=== PATIENT | female | born 1940 | race Caucasian/White ===

== ENCOUNTER 2017-05-30 09:52 | Emergency (ER) | payer MEDICARE, BC ==
--- NOTE | 2017-05-30 10:29 | EDM.PDOC ---
ED HPI GENERAL MEDICAL PROBLEM - General Chief Complaint: Lower Extremity Injury/Pain Stated Complaint: [id number] FELL AT HOME Time Seen by Provider: 05/30/17 10:15 Source of Information: Reports: Patient History Limitations: Reports: No Limitations - History of Present Illness INITIAL COMMENTS - FREE TEXT/NARRATIVE: This 77 yo female patient reports to the ED with right hip and pelvic pain due to a ground level fall. The patient reports she tripped while at her home and fell on her right hip. The patient reports no loss of consciousness before, during or after the fall. The patient reports pain in her right hip, a contusion on her right lateral eye and an abrasion to her right elbow. The patient has been able to ambulate at home. Onset: Today Onset Date: 05/30/17 Onset Time: 08:15 Duration: Constant Location: Reports: Pelvis, Lower Extremity, Right Quality: Reports: Ache, Dull Severity: Moderate Improves with: Reports: None Worsens with: Reports: None Associated Symptoms: Reports: No Other Symptoms Right Hip Pain Score (Numeric/FACES): 6 - Related Data Allergies Allergy/AdvReac Type Severity Reaction Status Date / Time Penicillins Allergy Rash Verified 05/30/17 09:57 Home Meds: Home Meds Latanoprost 2.5 ml OP DAILY 05/30/17 [History] Levothyroxine [Synthroid] 88 mcg PO ACBREAKFAST 05/30/17 [History] Lisinopril 40 mg PO DAILY 05/30/17 [History] Past Medical History HEENT History: Reports: Cataract, Impaired Vision Cardiovascular History: Reports: Hypertension Musculoskeletal History: Reports: Arthritis Endocrine/Metabolic History: Reports: Hyperthyroidism - Past Surgical History Endocrine Surgical History: Reports: Thyroidectomy Musculoskeletal Surgical History: Reports: Knee Replacement, Shoulder Surgery, Other (See Below) Other Musculoskeletal Surgeries/Procedures:: feet rishabh Social & Family History - Family History Family Medical History: Noncontributory - Tobacco Use Smoking Status *Q: Never Smoker Second Hand Smoke Exposure: No - Caffeine Use Caffeine Use: Reports: Coffee - Alcohol Use Days Per Week of Alcohol Use: 7 Number of Drinks Per Day: 1 Total Drinks Per Week: 7 Date of Last Drink: 05/29/17 Time of Last Drink: 17:00 - Recreational Drug Use Recreational Drug Use: No Review of Systems - Review of Systems Review Of Systems: ROS reveals no pertinent complaints other than HPI. ED EXAM, GENERAL - Physical Exam Exam: See Below Exam Limited By: No Limitations General Appearance: Alert, WD/WN, Moderate Distress Eye Exam: Bilateral Eye: EOMI, Normal Inspection, PERRL Ears: Normal External Exam, Normal Canal, Hearing Grossly Normal, Normal TMs Nose: Normal Inspection, Normal Mucosa, No Blood Throat/Mouth: Normal Inspection, Normal Lips, Normal Teeth, Normal Gums, Normal Oropharynx, Normal Voice, No Airway Compromise Head: Atraumatic, Normocephalic, Other (small contusion to the right lateral cheek) Neck: Normal Inspection, Supple, Non-Tender, Full Range of Motion Respiratory/Chest: No Respiratory Distress, Lungs Clear, Normal Breath Sounds, No Accessory Muscle Use, Chest Non-Tender Cardiovascular: Normal Peripheral Pulses, Regular Rate, Rhythm, No Edema, No Gallop, No JVD, No Murmur, No Rub GI/Abdominal: Normal Bowel Sounds, Soft, Non-Tender, No Organomegaly, No Distention, No Abnormal Bruit, No Mass (Female) Exam: Deferred Rectal (Female) Exam: Deferred Back Exam: Normal Inspection, Full Range of Motion, NT Extremities: Leg Pain (right hip and pelvis), Other (abrasion to right elbow. x- ray demonstrates an acute, mildly impactedsubcapital fracture of the right femoral neck) Neurological: Alert, Oriented, CN II-XII Intact, Normal Cognition, Normal Reflexes, No Motor/Sensory Deficits, Abnormal Gait Psychiatric: Normal Affect Skin Exam: Warm, Normal Color Lymphatic: No Adenopathy Course - Vital Signs Last Recorded V/S: Last Vital Signs Temp 37.2 C 05/30/17 11:22 Pulse 60 05/30/17 11:22 Resp 18 05/30/17 11:22 BP 188/56 H 05/30/17 11:22 Pulse Ox 99 05/30/17 11:22 Departure - Departure Time of Disposition: 11:23 Disposition: DC/Tfer to Acute Hospital 02 Condition: Fair Clinical Impression: Fracture of femoral neck, right, closed Qualifiers: Encounter type: initial encounter Qualified Code(s): S72.001A - Fracture of unspecified part of neck of right femur, initial encounter for closed fracture - Discharge Information Forms: Interfacility Transfer EMTALA Care Plan Goals: Discussed the history, examination and x-ray results with Dr. Soto via [facility] ([facility] Dr. Soto accepted the patient for continued evaluation and further management at [facility] in [place]. The patient will be transported by [facility].
--- NOTE | 2017-05-30 10:40 | CR ---
Clinical history: 77-year-old female ground level fall and right hip pain. Interpretation: AP pelvis/hips and AP/frog lateral views of the right hip abnormal. Acute, mildly impacted, subcapital fracture right femoral neck. No sign of other pelvic or contralateral left hip fracture. 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 Symmetric spacing normal-appearing SI and hip joints.
[2017-05-30 11:23] VITALS: BP 188/56
== END 2017-05-30 11:58 ==
LOC: DL.ED 09:52
DX: S72.011A Unspecified intracapsular fracture of right femur, initial encounter for closed fracture (principal); S00.83XA Contusion of other part of head, initial encounter; S50.311A Abrasion of right elbow, initial encounter; I10 Essential (primary) hypertension; M19.90 Unspecified osteoarthritis, unspecified site; Z96.659 Presence of unspecified artificial knee joint; Z98.890 Other specified postprocedural states; Z79.899 Other long term (current) drug therapy; Z88.0 Allergy status to penicillin; W01.0XXA Fall on same level from slipping, tripping and stumbling without subsequent striking against object, initial encounter; Y92.009 Unspecified place in unspecified non-institutional (private) residence as the place of occurrence of the external cause
CPT/HCPCS: 99284; 99285

== ENCOUNTER 2017-06-03 09:52 | Inpatient (IN) | payer MEDICARE, BC ==
[2017-06-03] MEDS ORDERED: Ondansetron 4 MG Tab.DIS PO PRN (15:00)
[2017-06-03] MEDS ORDERED: Polyethylene Glycol 3350 Powder 17 GM Packet PO PRN (15:00)
[2017-06-03] MEDS ORDERED: Magnesium Hydroxide 400 MG/5 ML Susp 30 ML Cup PO PRN (15:00)
[2017-06-03] MEDS ORDERED: Zolpidem 5 MG Tab PO PRN (15:00)
[2017-06-03] MEDS ORDERED: Docusate Sodium 100 MG Cap PO PRN (15:00)
--- NOTE | 2017-06-03 15:21 | PCM.HP ---
H&P History of Present Illness - General Date of Service: 06/03/17 Admit Problem/Dx: Admission Diagnosis/Problem Admission Diagnosis/Problem Weakness, r. hip pain Source of Information: Patient, Old Records (from [facility]) - History of Present Illness Initial Comments - Free Text/Narative: The patient is a 77-year-old lady who has a history of hypertension. The patient has been living at home and has been using the cane. She accidentally fell, fell over her cane. Landed on her right side. At the trauma to the head and hip fracture. Was admitted to [facility] and underwent right hip replacement surgery. Postoperative course was mostly uneventful, had good pain control. She still needs help with ambulation. She was transferred for further physical and occupational therapy in a swing bed setting. She has moderate pain in the right hip since the surgery. Better with Tylenol, worse with movements. no associated constipation, no fever. - Related Data Allergies/Adverse Reactions: Allergies Allergy/AdvReac Type Severity Reaction Status Date / Time Penicillins Allergy Rash Verified 06/03/17 14:14 Home Medications: Home Meds Latanoprost 1 drop EYEBOTH DAILY 05/30/17 [History] Levothyroxine [Synthroid] 88 mcg PO ACBREAKFAST 05/30/17 [History] Lisinopril 40 mg PO DAILY 05/30/17 [History] Aspirin/Calcium Carbonate/Mag [Aspirin Buffered 325 mg Tab] 325 mg PO DAILY [History] Methylcellulose 4000Cps [Methylcellulose] 1 packet PO DAILY PRN 06/03/17 [ History] Naproxen Sodium [Aleve] 440 mg PO BID 06/03/17 [History] Omeprazole 20 mg PO DAILY 06/03/17 [History] Vit A/Vit C/Vit E/Zinc/Copper [Preservision Areds Softgel] 1 cap PO DAILY [History] oxyCODONE 10 mg PO Q4H PRN 06/03/17 [History] Past Medical History HEENT History: Reports: Cataract, Glaucoma, Impaired Vision Cardiovascular History: Reports: Hypertension Gastrointestinal History: Reports: GERD Musculoskeletal History: Reports: Arthritis Endocrine/Metabolic History: Reports: Hypothyroidism - Infectious Disease History Infectious Disease History: Reports: Chicken Pox - Past Surgical History Endocrine Surgical History: Reports: Thyroidectomy, Other (See Below) Other Endocrine Surgeries/Procedures: destroyed with radioactive iodine injection Musculoskeletal Surgical History: Reports: Knee Replacement, Shoulder Surgery, Other (See Below) Other Musculoskeletal Surgeries/Procedures:: bilateral knees. rotator cuff. left bunion surgery Social & Family History - Family History Family Medical History: Noncontributory - Tobacco Use Smoking Status *Q: Former Smoker Used Tobacco, but Quit: Yes Month Tobacco Last Used: quit at age 42 Second Hand Smoke Exposure: No - Caffeine Use Caffeine Use: Reports: Coffee - Alcohol Use Days Per Week of Alcohol Use: 7 Number of Drinks Per Day: 1 Total Drinks Per Week: 7 - Recreational Drug Use Recreational Drug Use: No H&P Review of Systems - Review of Systems: Review Of Systems: See Below General: Denies: Fever, Chills Pulmonary: Denies: Shortness of Breath Cardiovascular: Denies: Chest Pain Gastrointestinal: Denies: Abdominal Pain Genitourinary: Denies: Dysuria, Hematuria Psychiatric: Denies: Confusion Exam - Exam Exam: See Below - Vital Signs Vital Signs: Last Vital Signs Temp 36.3 C 06/03/17 13:58 Pulse 83 06/03/17 13:58 Resp 20 06/03/17 13:58 BP 131/70 06/03/17 13:58 Pulse Ox 99 06/03/17 15:00 Weight: 77.474 kg - Exam General: Alert, Oriented Neck: Supple Lungs: Clear to Auscultation, Normal Respiratory Effort Cardiovascular: Regular Rate GI/Abdominal Exam: Normal Bowel Sounds, Soft, Non-Tender Back Exam: Normal Inspection Extremities: No Pedal Edema Skin: Incision (r hip) Neuro Extensive - Mental Status: Alert, Oriented x3, Normal Mood/Affect Psychiatric: Alert, Normal Affect, Normal Mood *Q Meaningful Use (ADM) - VTE *Q VTE Criteria *Q: - Stroke *Q Stroke Criteria *Q: - AMI *Q AMI Criteria *Q: - Problem List (1) Fracture of femoral neck, right, closed SNOMED Code(s): 407932087 ICD Code: S72.001A - FRACTURE OF UNSP PART OF NECK OF RIGHT FEMUR, INIT Status: Acute Current Visit: No Qualifiers: Encounter type: initial encounter Qualified Code(s): S72.001A - Fracture of unspecified part of neck of right femur, initial encounter for closed fracture Problem List Initiated/Reviewed/Updated: Yes Orders Last 24hrs: Active Orders 24 hr Category Date Time Status Patient Status [ADT] Routine ADT 06/03/17 15:00 Ordered Antiembolic Devices [RC] PER UNIT ROUTINE Care 06/03/17 15:02 Ordered Oxygen Therapy [RC] PRN Care 06/03/17 15:00 Ordered Up With Assistance [RC] ASDIRECTED Care 06/03/17 15:00 Ordered VTE/DVT Education [RC] PER UNIT ROUTINE Care 06/03/17 15:00 Ordered Vital Signs [RC] QSHIFT Care 06/03/17 15:00 Active OT Evaluation and Treatment [CONS] Routine Cons 06/03/17 14:57 Ordered PT Evaluation and Treatment [CONS] Routine Cons 06/03/17 14:57 Ordered Regular Diet [DIET] Diet 06/03/17 Dinner Ordered BASIC METABOLIC PANEL,BMP [CHEM] AM Lab 06/04/17 05:15 Ordered CBC WITH AUTO DIFF [HEME] AM Lab 06/04/17 05:15 Ordered Acetaminophen [Tylenol] Med 06/03/17 15:00 Ordered 650 mg PO Q4H PRN Aspirin/Calcium Carbonate/Mag [Aspirin Buffered 325 mg Med 06/04/17 09:00 Ordered Tab] 325 mg PO DAILY Docusate Sodium [Colace] Med 06/03/17 15:00 Ordered 100 mg PO BID PRN Heparin Sodium Med 06/03/17 22:00 Ordered 5,000 units SUBCUT Q8HR Latanoprost [Xalatan 0.005% Ophth Soln] Med 06/04/17 09:00 Ordered 1 drop EYEBOTH DAILY Levothyroxine [Synthroid] Med 06/04/17 06:00 Ordered 88 mcg PO ACBREAKFAST Lisinopril [Lisinopril] Med 06/04/17 09:00 Ordered 40 mg PO DAILY Magnesium Hydroxide [Milk of Magnesia] Med 06/03/17 15:00 Ordered 30 ml PO Q12H PRN Omeprazole Med 06/04/17 09:00 Ordered 20 mg PO DAILY Ondansetron [Zofran ODT] Med 06/03/17 15:00 Ordered 4 mg PO Q6H PRN Polyethylene Glycol 3350 [MiraLAX] Med 06/03/17 15:00 Ordered 17 gm PO DAILY PRN Zolpidem [Ambien] Med 06/03/17 15:00 Ordered 5 mg PO BEDTIME PRN oxyCODONE Med 06/03/17 14:57 Ordered 10 mg PO Q4H PRN Antiembolic Hose [OM.PC] Per Unit Routine Oth 06/03/17 15:01 Ordered Resuscitation Status Routine Resus Stat 06/03/17 15:00 Ordered Medication Orders Acetaminophen (Tylenol) 650 mg PO Q4H PRN PRN Reason: Pain (Mild 1-3)/fever Docusate Sodium (Colace) 100 mg PO BID PRN PRN Reason: Constipation Heparin Sodium (Porcine) (Heparin Sodium) 5,000 units SUBCUT Q8HR LARA Latanoprost (Xalatan 0.005% Ophth Soln) ml EYEBOTH DAILY LARA Levothyroxine Sodium (Synthroid) 88 mcg PO ACBREAKFAST LARA Magnesium Hydroxide (Milk Of Magnesia) 30 ml PO Q12H PRN PRN Reason: Constipation Non-Formulary Medication (Aspirin/Calcium Carbonate/Mag [Aspirin Buffered 325 Mg Tab]) 325 mg PO DAILY LARA Non-Formulary Medication (Lisinopril [Lisinopril]) 40 mg PO DAILY LARA Omeprazole (Omeprazole) 20 mg PO DAILY LARA Ondansetron HCl (Zofran Odt) 4 mg PO Q6H PRN PRN Reason: nausea, able to take PO Oxycodone HCl (Oxycodone) 10 mg PO Q4H PRN PRN Reason: Pain Polyethylene Glycol (Miralax) 17 gm PO DAILY PRN PRN Reason: Constipation Zolpidem Tartrate (Ambien) 5 mg PO BEDTIME PRN PRN Reason: Sleep Assessment/Plan Comment:: Right hip fracture, status post surgery DVT prophylaxis will be with aspirin and subcutaneous heparin Pain control with Tylenol Consult physical and occupational therapy Hypertension Treat with lisinopril
[2017-06-03] MEDS: Acetaminophen 325 MG Tab PO PRN (21:37)
[2017-06-03] MEDS: Latanoprost 0.005% Ophth Soln 2.5 ML Bottle EYEBOTH SCH (21:37)
[2017-06-03] MEDS: Heparin Sodium 5,000 Units/ML Vial SUBCUT SCH (21:37)
[2017-06-04] MEDS: Omeprazole 20 MG Cap.CR PO SCH (05:30)
[2017-06-04] MEDS: Levothyroxine 88 MCG Tab PO SCH (05:30)
[2017-06-04] MEDS: Heparin Sodium 5,000 Units/ML Vial SUBCUT SCH ×3 (05:30→21:00)
[2017-06-04 06:57] LABS: CHLORIDE,CL 104 mmol/L (101-111); SODIUM,NA 138 mmol/L (135-145)
[2017-06-04] MEDS: Lisinopril 20 MG Tab PO SCH (10:09)
[2017-06-04] MEDS: Aspirin 325 MG Tab.EC PO SCH (10:09)
[2017-06-04] MEDS: Acetaminophen 325 MG Tab PO PRN ×2 (10:13→21:01)
[2017-06-04] MEDS: Latanoprost 0.005% Ophth Soln 2.5 ML Bottle EYEBOTH SCH (21:00)
[2017-06-05] MEDS: Levothyroxine 88 MCG Tab PO SCH (06:30)
[2017-06-05] MEDS: Omeprazole 20 MG Cap.CR PO SCH (06:30)
[2017-06-05] MEDS: Heparin Sodium 5,000 Units/ML Vial SUBCUT SCH ×3 (06:30→22:25)
[2017-06-05] MEDS: Aspirin 325 MG Tab.EC PO SCH (10:56)
[2017-06-05] MEDS: Lisinopril 20 MG Tab PO SCH (11:07)
[2017-06-05] MEDS: Acetaminophen 325 MG Tab PO PRN ×2 (11:09→16:20)
[2017-06-05] MEDS: Latanoprost 0.005% Ophth Soln 2.5 ML Bottle EYEBOTH SCH (22:27)
[2017-06-06] MEDS: Heparin Sodium 5,000 Units/ML Vial SUBCUT SCH ×3 (06:35→22:08)
[2017-06-06] MEDS: Levothyroxine 88 MCG Tab PO SCH (06:36)
[2017-06-06] MEDS: Omeprazole 20 MG Cap.CR PO SCH (06:36)
[2017-06-06] MEDS: Aspirin 325 MG Tab.EC PO SCH (08:50)
[2017-06-06] MEDS: Lisinopril 20 MG Tab PO SCH (08:51)
[2017-06-06] MEDS: Acetaminophen 325 MG Tab PO PRN ×3 (08:51→20:43)
[2017-06-06] MEDS: Latanoprost 0.005% Ophth Soln 2.5 ML Bottle EYEBOTH SCH (20:42)
[2017-06-07] MEDS: Heparin Sodium 5,000 Units/ML Vial SUBCUT SCH ×3 (05:58→22:09)
[2017-06-07] MEDS: Levothyroxine 88 MCG Tab PO SCH (05:59)
[2017-06-07] MEDS: Omeprazole 20 MG Cap.CR PO SCH (05:59)
[2017-06-07 06:59] LABS: CHLORIDE,CL 105 mmol/L (101-111); SODIUM,NA 140 mmol/L (135-145)
[2017-06-07] MEDS: Aspirin 325 MG Tab.EC PO SCH (08:59)
[2017-06-07] MEDS: Lisinopril 20 MG Tab PO SCH (08:59)
[2017-06-07] MEDS: Acetaminophen 325 MG Tab PO PRN ×2 (09:00→18:29)
--- NOTE | 2017-06-07 15:53 | PCM.PN ---
- General Info Date of Service: 06/07/17 Admission Dx/Problem (Free Text): Admission Diagnosis/Problem Admission Diagnosis/Problem Weakness, r. hip pain Subjective Update: Feeling well, working with physical therapy occupational therapy and making good progress. Has mild pain in the right leg associated with a small amount of swelling. Tylenol is working on the pain. No associated fever, no chest pain, no cough. Functional Status: Reports: Pain Controlled - Review of Systems General: Reports: No Symptoms. Denies: Fever Pulmonary: Denies: Shortness of Breath Cardiovascular: Reports: Edema (r leg since surgery). Denies: Chest Pain Skin: Reports: No Symptoms Neurological: Reports: No Symptoms Psychiatric: Reports: No Symptoms - Patient Data Vitals - Most Recent: Last Vital Signs Temp 36.4 C 06/07/17 08:22 Pulse 54 L 06/07/17 08:22 Resp 18 06/07/17 08:22 BP 115/58 L 06/07/17 08:59 Pulse Ox 100 06/07/17 08:22 Weight - Most Recent: 75.92 kg I&O - Last 24 Hours: Intake & Output 06/07/17 06/07/17 06/07/17 06:59 14:59 22:59 Intake Total 1400 Balance 1400 Lab Results Last 24 Hours: Laboratory Results - last 24 hr 06/07/17 06/07/17 Range/Units 06:20 06:20 WBC 7.5 (5.0-10.0) 10^3/uL RBC 3.42 L (4.2-5.4) 10^6/uL Hgb 10.8 L (12.0-16.0) g/dL Hct 34.1 L (37.0-47.0) % MCV 99.7 (80-100) fL MCH 31.6 (27.0-34.0) pg MCHC 31.7 L (33.0-35.0) g/dL Plt Count 455 H (150-450) 10^3/uL Neut % (Auto) 50.9 (42.2-75.2) % Lymph % (Auto) 26.4 (20.5-50.1) % [place] % (Auto) 14.6 H (2-8) % Eos % (Auto) 6.4 H (1.0-3.0) % Baso % (Auto) 1.7 H (0.0-1.0) % Sodium 140 (135-145) mmol/L Potassium 4.5 (3.6-5.0) mmol/L Chloride 105 (101-111) mmol/L Carbon Dioxide 26.0 (21.0-31.0) mmol/L Anion Gap 13.5 BUN 24 H (7-18) mg/dL Creatinine 0.9 (0.6-1.3) mg/dL Est Cr Clr Drug Dosing 42.72 mL/min Estimated GFR (MDRD) > 60 Glucose 90 (74-105) mg/dL Calcium 9.1 (8.4-10.2) mg/dl Med Orders - Current: Current Medications Acetaminophen (Tylenol) 650 mg PO Q4H PRN PRN Reason: Pain (Mild 1-3)/fever Last Admin: 06/07/17 09:00 Dose: 650 mg Aspirin (Ecotrin) 325 mg PO DAILY [facility] Last Admin: 06/07/17 08:59 Dose: 325 mg Docusate Sodium (Colace) 100 mg PO BID PRN PRN Reason: Constipation Heparin Sodium (Porcine) (Heparin Sodium) 5,000 units SUBCUT Q8HR [facility] Last Admin: 06/07/17 13:51 Dose: 5,000 units Latanoprost (Xalatan 0.005% Oph Soln) 0 ml EYERT BEDTIME [facility] Levothyroxine Sodium (Synthroid) 88 mcg PO ACBREAKFAST [facility] Last Admin: 06/07/17 05:59 Dose: 88 mcg Lisinopril (Prinivil) 40 mg PO DAILY [facility] Last Admin: 06/07/17 08:59 Dose: 40 mg Magnesium Hydroxide (Milk Of Magnesia) 30 ml PO Q12H PRN PRN Reason: Constipation Omeprazole (Omeprazole) 20 mg PO ACBRK [facility] Last Admin: 06/07/17 05:59 Dose: 20 mg Ondansetron HCl (Zofran Odt) 4 mg PO Q6H PRN PRN Reason: nausea, able to take PO Oxycodone HCl (Oxycodone) 10 mg PO Q4H PRN PRN Reason: Pain Polyethylene Glycol (Miralax) 17 gm PO DAILY PRN PRN Reason: Constipation Zolpidem Tartrate (Ambien) 5 mg PO BEDTIME PRN PRN Reason: Sleep Discontinued Medications Latanoprost (Xalatan 0.005% Ophth Soln) 0 ml EYEBOTH BEDTIME [facility] Last Admin: 06/06/17 20:42 Dose: 1 drop - Exam General: Alert, Oriented Neck: Supple Lungs: Clear to Auscultation, Normal Respiratory Effort Cardiovascular: Regular Rate, Regular Rhythm GI/Abdominal Exam: Normal Bowel Sounds, Soft, Non-Tender Extremities: Pedal Edema (r leg trace to 1+) Skin: Warm, Dry Neurological: No New Focal Deficit Psy/Mental Status: Alert, Normal Affect, Normal Mood - Problem List & Annotations (1) Fracture of femoral neck, right, closed SNOMED Code(s): 074173382 Code(s): S72.001A - FRACTURE OF UNSP PART OF NECK OF RIGHT FEMUR, INIT Status: Acute Current Visit: No Qualifiers: Encounter type: initial encounter Qualified Code(s): S72.001A - Fracture of unspecified part of neck of right femur, initial encounter for closed fracture - Problem List Review Problem List Initiated/Reviewed/Updated: Yes - My Orders Last 24 Hours: My Active Orders 06/07/17 21:00 Latanoprost [Xalatan 0.005% Ophth Soln] 0 ml EYERT BEDTIME - Plan Plan:: Right hip fracture, status post surgery DVT prophylaxis will be with aspirin and subcutaneous heparin Pain control with Tylenol continue to work with physical and occupational therapy edema likely relates to surgery, less likely DVT Hypertension Treat with lisinopril
--- NOTE | 2017-06-07 16:49 | US ---
Clinical history: 77-year-old female recent hip fracture and surgical procedure (surgery May) who is at bed rest. Rule out DVT right lower extremity. Interpretation: Negative exam. No sign of intraluminal thrombus and normal compressibility deep veins of the right groin, thigh and knee with satisfactory augmentation and venous waveforms demonstrated respectively in the posterior tibial veins of the right calf, popliteal vein behind the right knee, and approximately in the supe rficial/common femoral veins. No Flower's cyst. CONCLUSION: No current sonographic evidence deep vein thrombosis right lower extremity.
[2017-06-07] MEDS: Latanoprost 0.005% Ophth Soln 2.5 ML Bottle EYERT SCH (21:23)
[2017-06-08] MEDS: Levothyroxine 88 MCG Tab PO SCH (06:15)
[2017-06-08] MEDS: Omeprazole 20 MG Cap.CR PO SCH (06:16)
[2017-06-08] MEDS: Heparin Sodium 5,000 Units/ML Vial SUBCUT SCH ×3 (06:16→21:01)
[2017-06-08] MEDS: Lisinopril 20 MG Tab PO SCH (08:30)
[2017-06-08] MEDS: Aspirin 325 MG Tab.EC PO SCH (08:30)
[2017-06-08] MEDS: Acetaminophen 325 MG Tab PO PRN ×2 (16:23→21:00)
[2017-06-08] MEDS: Latanoprost 0.005% Ophth Soln 2.5 ML Bottle EYERT SCH (20:44)
[2017-06-09] MEDS: Levothyroxine 88 MCG Tab PO SCH (05:51)
[2017-06-09] MEDS: Heparin Sodium 5,000 Units/ML Vial SUBCUT SCH ×3 (05:51→22:31)
[2017-06-09] MEDS: Omeprazole 20 MG Cap.CR PO SCH (05:51)
[2017-06-09] MEDS: Aspirin 325 MG Tab.EC PO SCH (09:10)
[2017-06-09] MEDS: Lisinopril 20 MG Tab PO SCH (09:11)
[2017-06-09] MEDS: Acetaminophen 325 MG Tab PO PRN ×3 (09:13→19:05)
[2017-06-09] MEDS: oxyCODONE 5 MG Tab PO PRN ×2 (15:36→22:33)
[2017-06-09] MEDS: Latanoprost 0.005% Ophth Soln 2.5 ML Bottle EYERT SCH (22:32)
[2017-06-10] MEDS: oxyCODONE 5 MG Tab PO PRN ×2 (03:25→09:25)
[2017-06-10] MEDS: Heparin Sodium 5,000 Units/ML Vial SUBCUT SCH ×2 (06:55→13:37)
[2017-06-10] MEDS: Levothyroxine 88 MCG Tab PO SCH (06:55)
[2017-06-10] MEDS: Omeprazole 20 MG Cap.CR PO SCH (06:55)
[2017-06-10] MEDS: Acetaminophen 325 MG Tab PO PRN (06:56)
[2017-06-10] MEDS: Aspirin 325 MG Tab.EC PO SCH (09:25)
[2017-06-10] MEDS: Lisinopril 20 MG Tab PO SCH (09:28)
[2017-06-10 09:29] VITALS: BP 113/71
--- NOTE | 2017-06-10 12:20 | PCM.DCSUM1 ---
Discharge Summary - Hospital Course Free Text/Narrative:: Right hip fracture, status post surgery Significantly improved weakness and gait. DVT prophylaxis was with aspirin Pain controlled with Tylenol Hypertension Treat with lisinopril Follow-up with orthopedic surgery and primary care physician Follow-up with outpatient physical therapy - Discharge Data Discharge Date: 06/10/17 Discharge Disposition: Home, Self-Care 01 Condition: Good - Discharge Diagnosis/Problem(s) (1) Fracture of femoral neck, right, closed SNOMED Code(s): 005834687 ICD Code: S72.001A - FRACTURE OF UNSP PART OF NECK OF RIGHT FEMUR, INIT Status: Acute Current Visit: No Qualifiers: Encounter type: initial encounter Qualified Code(s): S72.001A - Fracture of unspecified part of neck of right femur, initial encounter for closed fracture - Patient Summary/Data Consults: Consultations 06/03/17 14:57 OT Evaluation and Treatment [CONS] Routine PT Evaluation and Treatment [CONS] Routine - Patient Instructions Diet: Heart Healthy Diet Activity: As Tolerated - Discharge Plan Home Medications: Home Meds Latanoprost 1 drop EYEBOTH DAILY 05/30/17 [History] Levothyroxine [Synthroid] 88 mcg PO ACBREAKFAST 05/30/17 [History] Lisinopril 40 mg PO DAILY 05/30/17 [History] Aspirin/Calcium Carbonate/Mag [Aspirin Buffered 325 mg Tab] 325 mg PO DAILY [History] Methylcellulose 4000Cps [Methylcellulose] 1 packet PO DAILY PRN 06/03/17 [ History] Naproxen Sodium [Aleve] 440 mg PO BID 06/03/17 [History] Omeprazole 20 mg PO DAILY 06/03/17 [History] Vit A/Vit C/Vit E/Zinc/Copper [Preservision Areds Softgel] 1 cap PO DAILY [History] Patient Handouts: Total Hip Replacement, [id number], How to Use a Walker, Total Hip Replacement, Care After, [id number] Referrals: Amol Owen MD [Primary Care Provider] - (in 2-3 days) - General Info Date of Service: 06/10/17 Admission Dx/Problem (Free Text: Admission Diagnosis/Problem Admission Diagnosis/Problem Weakness, r. hip pain Subjective Update: Feeling well Head therapeutic leave yesterday and the day before Has done well in his home setting. - Review of Systems General: Denies: Fever, Weakness Pulmonary: Denies: Shortness of Breath Cardiovascular: Denies: Chest Pain Gastrointestinal: Denies: Abdominal Pain Psychiatric: Denies: Confusion - Patient Data Vitals - Most Recent: Last Vital Signs Temp 36.7 C 06/10/17 07:00 Pulse 54 L 06/10/17 07:00 Resp 20 06/10/17 07:00 BP 113/71 06/10/17 09:28 Pulse Ox 99 06/10/17 07:00 Weight - Most Recent: 75.92 kg I&O - Last 24 hours: Intake & Output 06/09/17 06/10/17 06/10/17 22:59 06:59 14:59 Intake Total 250 100 Balance 250 100 Med Orders - Current: Current Medications Acetaminophen (Tylenol) 650 mg PO Q4H PRN PRN Reason: Pain (Mild 1-3)/fever Last Admin: 06/10/17 06:56 Dose: 650 mg Aspirin (Ecotrin) 325 mg PO DAILY [facility] Last Admin: 06/10/17 09:25 Dose: 325 mg Docusate Sodium (Colace) 100 mg PO BID PRN PRN Reason: Constipation Heparin Sodium (Porcine) (Heparin Sodium) 5,000 units SUBCUT Q8HR [facility] Last Admin: 06/10/17 06:55 Dose: 5,000 units Latanoprost (Xalatan 0.005% Ophth Soln) 0 ml EYERT BEDTIME [facility] Last Admin: 06/09/17 22:32 Dose: 1 drop Levothyroxine Sodium (Synthroid) 88 mcg PO ACBREAKFAST [facility] Last Admin: 06/10/17 06:55 Dose: 88 mcg Lisinopril (Prinivil) 40 mg PO DAILY [facility] Last Admin: 06/10/17 09:28 Dose: 40 mg Magnesium Hydroxide (Milk Of Magnesia) 30 ml PO Q12H PRN PRN Reason: Constipation Omeprazole (Omeprazole) 20 mg PO ACBRK [facility] Last Admin: 06/10/17 06:55 Dose: 20 mg Ondansetron HCl (Zofran Odt) 4 mg PO Q6H PRN PRN Reason: nausea, able to take PO Oxycodone HCl (Oxycodone) 10 mg PO Q4H PRN PRN Reason: Pain Last Admin: 06/10/17 09:25 Dose: 10 mg Polyethylene Glycol (Miralax) 17 gm PO DAILY PRN PRN Reason: Constipation Zolpidem Tartrate (Ambien) 5 mg PO BEDTIME PRN PRN Reason: Sleep Discontinued Medications Latanoprost (Xalatan 0.005% Ophth Soln) 0 ml EYEBOTH BEDTIME [facility] Last Admin: 06/06/17 20:42 Dose: 1 drop - Exam General: Reports: Alert, Oriented Neck: Reports: Supple Lungs: Reports: Clear to Auscultation, Normal Respiratory Effort GI/Abdominal Exam: Normal Bowel Sounds, Soft Skin: Reports: Warm, Dry Neurological: Reports: No New Focal Deficit Psy/Mental Status: Reports: Alert, Normal Affect, Normal Mood *Q Meaningful Use (DIS) - VTE *Q VTE Criteria *Q: - Stroke *Q Stroke Criteria *Q: - AMI *Q AMI Criteria *Q:
== END 2017-06-10 16:30 | disposition home or self-care (01) | DRG 561 ==
LOC: UNDOADMIN 13:35 → DL.MS 13:35
PROVIDERS: ADMIT Internal Medicine; ATTEND Internal Medicine
DX: S72.001D Fracture of unspecified part of neck of right femur, subsequent encounter for closed fracture with routine healing (principal); R53.1 Weakness; I10 Essential (primary) hypertension; W18.30XA Fall on same level, unspecified, initial encounter; H40.9 Unspecified glaucoma; K21.9 Gastro-esophageal reflux disease without esophagitis; E03.9 Hypothyroidism, unspecified; M19.90 Unspecified osteoarthritis, unspecified site; Z87.891 Personal history of nicotine dependence; R60.0 Localized edema
CPT/HCPCS: 36415; 80048; 85025; 93971; 97110-GP; 97116-GP; 97161-GP; 97165-GO; 97535-GO; A9270-GY; J1644

== ENCOUNTER 2017-10-12 22:43 | Emergency (ER) | payer MEDICARE, BC ==
[2017-10-12] MEDS ORDERED: Magnesium Citrate Solution 296 ML Bottle PO ONE (22:44)
[2017-10-12] MEDS ORDERED: Morphine 2 MG/ML Syringe IVPUSH ONE (23:32)
[2017-10-12] MEDS ORDERED: Ondansetron 4 MG/2 ML SDV IV ONE (23:33)
--- NOTE | 2017-10-12 23:33 | EDM.PDOC ---
ED HPI GENERAL MEDICAL PROBLEM - General Chief Complaint: Abdominal Pain Stated Complaint: ABD PAIN, GALLBLADDER? Time Seen by Provider: 10/12/17 22:55 Source of Information: Reports: Patient History Limitations: Reports: No Limitations - History of Present Illness INITIAL COMMENTS - FREE TEXT/NARRATIVE: left side and back pain worsening since yesterday am. Notes constipation, no nausea or vomiting. no fever no problems urinating Severity: Moderate Left Mid-Anterior Abdomen Pain Score (Numeric/FACES): 6 - Related Data Allergies Allergy/AdvReac Type Severity Reaction Status Date / Time Penicillins Allergy Rash Verified 10/12/17 22:59 Home Meds: Home Meds Latanoprost 1 drop EYEBOTH DAILY 05/30/17 [History] Levothyroxine [Synthroid] 88 mcg PO ACBREAKFAST 05/30/17 [History] Lisinopril 40 mg PO DAILY 05/30/17 [History] Aspirin/Calcium Carbonate/Mag [Aspirin Buffered 325 mg Tab] 325 mg PO DAILY [History] Methylcellulose 4000Cps [Methylcellulose] 1 packet PO DAILY PRN 06/03/17 [ History] Naproxen Sodium [Aleve] 440 mg PO BID 06/03/17 [History] Omeprazole 20 mg PO DAILY 06/03/17 [History] Vit A/Vit C/Vit E/Zinc/Copper [Preservision Areds Softgel] 1 cap PO DAILY [History] oxyCODONE 5 mg PO Q4H PRN #0 tablet 06/10/17 [Rx] Past Medical History HEENT History: Reports: Cataract, Glaucoma, Impaired Vision Cardiovascular History: Reports: Hypertension Gastrointestinal History: Reports: GERD Musculoskeletal History: Reports: Arthritis Endocrine/Metabolic History: Reports: Hypothyroidism - Infectious Disease History Infectious Disease History: Reports: Chicken Pox - Past Surgical History Endocrine Surgical History: Reports: Thyroidectomy, Other (See Below) Other Endocrine Surgeries/Procedures: destroyed with radioactive iodine injection Musculoskeletal Surgical History: Reports: Knee Replacement, Shoulder Surgery, Other (See Below) Other Musculoskeletal Surgeries/Procedures:: bilateral knees. rotator cuff. left bunion surgery Social & Family History - Family History Family Medical History: Noncontributory - Tobacco Use Smoking Status *Q: Former Smoker Used Tobacco, but Quit: No Month Tobacco Last Used: quit at age 42 Second Hand Smoke Exposure: No - Caffeine Use Caffeine Use: Reports: Coffee, Soda - Alcohol Use Days Per Week of Alcohol Use: 7 Number of Drinks Per Day: 1 Total Drinks Per Week: 7 Date of Last Drink: 10/12/17 - Recreational Drug Use Recreational Drug Use: No ED ROS GENERAL - Review of Systems Review Of Systems: See Below Constitutional: Denies: Fever, Chills HEENT: Reports: No Symptoms Respiratory: Reports: No Symptoms Cardiovascular: Reports: No Symptoms GI/Abdominal: Reports: Constipation, Flatus. Denies: Abdominal Pain, Diarrhea, Decreased Appetite, Distension : Reports: No Symptoms, Flank Pain (left) Musculoskeletal: Reports: Back Pain (lateral left lower). Denies: Leg Pain Skin: Reports: No Symptoms Neurological: Reports: No Symptoms ED EXAM, GI/ABD - Physical Exam Exam: See Below Exam Limited By: No Limitations General Appearance: Alert, Mild Distress (worse with movment) Eyes: Bilateral: EOMI Ears: Normal External Exam Nose: Normal Inspection Throat/Mouth: Normal Inspection, Normal Lips, Normal Oropharynx, Normal Voice Head: Atraumatic, Normocephalic Neck: Normal Inspection, Full Range of Motion Respiratory/Chest: No Respiratory Distress, Lungs Clear, Normal Breath Sounds Cardiovascular: Normal Peripheral Pulses, Regular Rate, Rhythm GI/Abdominal Exam: Normal Bowel Sounds, Soft, Non-Tender Back Exam: Normal Inspection, Full Range of Motion, CVA Tenderness (L) Extremities: Normal Inspection Neurological: Alert, Oriented, Normal Cognition, Normal Gait Psychiatric: Normal Affect Skin Exam: Warm, Dry, Intact, Normal Color Course - Vital Signs Last Recorded V/S: Last Vital Signs Temp 97.6 F 10/13/17 00:39 Pulse 64 10/13/17 00:39 Resp 18 10/13/17 00:39 BP 152/52 H 10/13/17 00:39 Pulse Ox 95 10/13/17 00:39 - Orders/Labs/Meds Orders: Active Orders 24 hr Category Date Time Status Abdomen Pelvis wo Cont [CT] Urgent Exams 10/13/17 00:05 Taken Labs: Laboratory Tests 10/12/17 10/12/17 10/13/17 Range/Units 22:55 22:55 00:30 WBC 7.2 (5.0-10.0) 10^3/uL RBC 3.85 L (4.2-5.4) 10^6/uL Hgb 12.0 (12.0-16.0) g/dL Hct 38.1 (37.0-47.0) % MCV 99.0 (80-100) fL MCH 31.2 (27.0-34.0) pg MCHC 31.5 L (33.0-35.0) g/dL Plt Count 389 (150-450) 10^3/uL Neut % (Auto) 46.1 (42.2-75.2) % Lymph % (Auto) 34.6 (20.5-50.1) % [place] % (Auto) 12.4 H (2-8) % Eos % (Auto) 5.2 H (1.0-3.0) % Baso % (Auto) 1.7 H (0.0-1.0) % Sodium 137 (135-145) mmol/L Potassium 4.2 (3.6-5.0) mmol/L Chloride 103 (101-111) mmol/L Carbon Dioxide 24.0 (21.0-31.0) mmol/L Anion Gap 14.2 BUN 21 H (7-18) mg/dL Creatinine 0.9 (0.6-1.3) mg/dL Est Cr Clr Drug Dosing 54.48 mL/min Estimated GFR (MDRD) > 60 BUN/Creatinine Ratio 23.33 Glucose 97 (74-105) mg/dL Calcium 9.2 (8.4-10.2) mg/dl Total Bilirubin 0.5 (0.2-1.0) mg/dL AST 23 (10-42) IU/L ALT 17 (10-60) IU/L Alkaline Phosphatase 68 (42-121) IU/L Total Protein 7.2 (6.7-8.2) g/dl Albumin 4.3 (3.2-5.5) g/dl Globulin 2.9 Albumin/Globulin Ratio 1.48 Amylase 72 (28-100) U/L Lipase 34 (22-51) U/L Urine Color Yellow (YELLOW) Urine Appearance Clear (CLEAR) Urine pH 5.5 (5.0-9.0) Ur Specific [place] <= 1.005 (1.005-1.030) Urine Protein Negative (NEGATIVE) Urine Glucose (UA) Negative (NEGATIVE) Urine Ketones Negative (NEGATIVE) Urine Occult Blood Negative (NEGATIVE) Urine Nitrite Negative (NEGATIVE) Urine Bilirubin Negative (NEGATIVE) Urine Urobilinogen 0.2 (0.2-1.0) mg/dL Ur Leukocyte Esterase Trace H (NEGATIVE) Urine RBC 0-5 /HPF Urine WBC 0-5 (0-5/HPF) /HPF Ur Epithelial Cells Few /HPF Urine Bacteria Few (0-FEW/HPF) /HPF Meds: Medications Discontinued Medications Generic Name Dose Route Start Last Admin Trade Name James PRN Reason Stop Dose Admin Sodium Chloride 1,000 mls @ 150 mls/hr 10/13/17 00:11 10/13/17 00:33 Normal Saline IV 10/13/17 06:50 150 mls/hr .BOLUS ONE Administration Magnesium Citrate Confirm 10/13/17 01:19 Citrate Of Magnesia Administered 10/13/17 01:20 Dose 296 ml .ROUTE .STK-MED ONE Morphine Sulfate 2 mg 10/12/17 23:32 10/12/17 23:41 Morphine IVPUSH 10/12/17 23:33 2 mg ONETIME ONE Administration Morphine Sulfate 2 mg 10/13/17 00:24 10/13/17 00:36 Morphine IVPUSH 10/13/17 00:25 2 mg ONETIME ONE Administration Ondansetron HCl 4 mg 10/12/17 23:33 10/12/17 23:41 Zofran IV 10/12/17 23:34 4 mg ONETIME ONE Administration - Radiology Interpretation Free Text/Narrative:: CT abdomen without contrast: no renal calculi, constipation, Departure - Departure Time of Disposition: 01:20 Disposition: Home, Self-Care 01 Condition: Fair Clinical Impression: Left flank pain Constipation Qualifiers: Constipation type: unspecified constipation type Qualified Code(s): K59.00 - Constipation, unspecified - Discharge Information Instructions: Constipation, Adult, [id number] Referrals: PCP,Unobtain [Primary Care Provider] - Forms: ED Department Discharge Additional Instructions: Mag citrate one bottle today increase fluid intake miralax one capful daily follow up in clinic as needed, - next week if continued pain - My Orders Last 24 Hours: My Active Orders 10/13/17 00:05 Abdomen Pelvis wo Cont [CT] Urgent - Assessment/Plan Last 24 Hours: My Active Orders 10/13/17 00:05 Abdomen Pelvis wo Cont [CT] Urgent
[2017-10-12 23:35] LABS: CHLORIDE,CL 103 mmol/L (101-111); SODIUM,NA 137 mmol/L (135-145)
[2017-10-13] MEDS ORDERED: Sodium Chloride 0.9% 1,000 ML IV ONE (00:11)
[2017-10-13] MEDS ORDERED: Morphine 2 MG/ML Syringe IVPUSH ONE (00:24)
[2017-10-13 00:41] VITALS: BP 152/52
[2017-10-13] MEDS ORDERED: Magnesium Citrate Solution 296 ML Bottle ONE (01:19)
== END 2017-10-13 01:31 | disposition home or self-care (01) ==
LOC: DL.ED 22:43
DX: K59.00 Constipation, unspecified (principal); I10 Essential (primary) hypertension; Z88.0 Allergy status to penicillin; Z79.82 Long term (current) use of aspirin; Z79.899 Other long term (current) drug therapy; Z87.891 Personal history of nicotine dependence
CPT/HCPCS: 36415; 74176; 80053; 81001; 82150; 83690; 85025; 96374; 96375; 96376; 99284; J2270; J2405; J7030; A9270-GY

== ENCOUNTER 2019-03-02 14:13 | Emergency (ER) | payer MEDICARE, BC ==
[2019-03-02] MEDS ORDERED: Sodium Chloride 0.9% 10 ML Syringe FLUSH PRN (14:22)
--- NOTE | 2019-03-02 14:37 | CT ---
Clinical history: 78-year-old female clinical "stroke". Rule out intracranial bleed or other abnormality. Scan technique: Volume acquisition of data emergency unenhanced CT scan of the head and brain obtained with the patient was lying supine on the Siemens multi slice scanner [place], [place]. All data archived in the PACS system for storage, reformatting axial/sagittal/coronal planes and study (bone/brain windows). Interpretation: Abnormal. 1. Extensive multi-infarct ischemic changes identified throughout the periventricular white matter of both cerebral hemispheres. Physiologic pineal and choroid plexus calcifications. 2. No sign of acute intracerebral/intraventricular/subarachnoid bleed. (Tiny punctate calcification high in the right parietal convexity new since exam 02 June 2008) 3. Uniformly thick bony calvarium. Symmetric clear pneumatization of the mastoid and paranasal sinuses. 4. No extracerebral/intracranial epidural or subdural hematoma. 5. No supratentorial or posterior fossa mass lesion. Age-appropriate atrophy. Cerebellum and brainstem unremarkable. CONCLUSION: Chronic (increased) 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 No new intracranial mass, hydrocephalus or bleed. Critical exam reported at 1435 hours on 02 March 2019.
[2019-03-02 14:52] LABS: ANION GAP 16.4; CHLORIDE,CL 100 mmol/L (101-111); SODIUM,NA 136 mmol/L (135-145)
[2019-03-02 14:58] VITALS: BP 178/73
--- NOTE | 2019-03-02 16:48 | EDM.PDOC ---
ED HPI GENERAL MEDICAL PROBLEM - General Chief Complaint: Neuro Symptoms/Deficits Stated Complaint: STROKE?MEMORY LOSS,VISON LOSS [id number] Time Seen by Provider: 03/02/19 14:17 Source of Information: Reports: Patient, RN, RN Notes Reviewed History Limitations: Reports: No Limitations - History of Present Illness INITIAL COMMENTS - FREE TEXT/NARRATIVE: Patient presents to ER with complaint of headache, loss of half of vision in right eye, weakness and feeling of "not finding words". Patient states this occurred at 0930. The patient then went shopping and went to exercise, then came to the ER. Vision and weakness has resolved. Still feels as though she can' t find words. NIH score is negative. Onset: Today Duration: Getting Worse Location: Reports: Generalized Quality: Reports: Ache Severity: Severe Improves with: Reports: None Worsens with: Reports: None Associated Symptoms: Reports: No Other Symptoms - Related Data Allergies Allergy/AdvReac Type Severity Reaction Status Date / Time Penicillins Allergy Rash Verified 03/02/19 14:31 Home Meds: Home Meds Latanoprost 1 drop EYEBOTH DAILY 05/30/17 [History] Levothyroxine [Synthroid] 88 mcg PO ACBREAKFAST 05/30/17 [History] Lisinopril 40 mg PO DAILY 05/30/17 [History] Methylcellulose 4000Cps [Methylcellulose] 1 packet PO DAILY PRN 06/03/17 [ History] Naproxen Sodium [Aleve] 440 mg PO DAILY 06/03/17 [History] Vit A/Vit C/Vit E/Zinc/Copper [Preservision Areds Softgel] 1 cap PO DAILY [History] Alendronate Sodium 70 mg PO WEEKLY 03/02/19 [History] Aspirin [Halfprin] 81 mg PO DAILY 03/02/19 [History] Pantoprazole [ProTONIX] 40 mg PO DAILY 03/02/19 [History] Past Medical History HEENT History: Reports: Cataract, Glaucoma, Impaired Vision Other HEENT History: wears glasses Cardiovascular History: Reports: Hypertension Respiratory History: Reports: None Gastrointestinal History: Reports: GERD Genitourinary History: Reports: None 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 Musculoskeletal History: Reports: Arthritis Neurological History: Reports: None Psychiatric History: Reports: None Endocrine/Metabolic History: Reports: Hypothyroidism Hematologic History: Reports: None Immunologic History: Reports: None Oncologic (Cancer) History: Reports: None Dermatologic History: Reports: None - Infectious Disease History Infectious Disease History: Reports: Chicken Pox - Past Surgical History Endocrine Surgical History: Reports: Thyroidectomy, Other (See Below) Other Endocrine Surgeries/Procedures: destroyed with radioactive iodine injection Musculoskeletal Surgical History: Reports: Knee Replacement, Shoulder Surgery, Other (See Below) Other Musculoskeletal Surgeries/Procedures:: bilateral knees. rotator cuff. left bunion surgery Social & Family History - Family History Family Medical History: Noncontributory - Tobacco Use Smoking Status *Q: Never Smoker Second Hand Smoke Exposure: No - Caffeine Use Caffeine Use: Reports: Coffee, Soda - Recreational Drug Use Recreational Drug Use: No ED ROS GENERAL - Review of Systems Review Of Systems: ROS reveals no pertinent complaints other than HPI. ED EXAM, NEURO - Physical Exam Exam: See Below Exam Limited By: No Limitations General Appearance: Alert, WD/WN, No Apparent Distress Eye Exam: Bilateral Eye: EOMI, Normal Inspection, PERRL Ears: Normal External Exam, Normal Canal, Hearing Grossly Normal, Normal TMs Nose: Normal Inspection, Normal Mucosa, No Blood Throat/Mouth: Normal Inspection, Normal Lips, Normal Teeth, Normal Gums, Normal Oropharynx, Normal Voice, No Airway Compromise Head Exam: Atraumatic, Normocephalic Neck: Normal Inspection, Supple, Non-Tender, Full Range of Motion Respiratory/Chest: No Respiratory Distress, Lungs Clear, Normal Breath Sounds, No Accessory Muscle Use, Chest Non-Tender Cardiovascular: Normal Peripheral Pulses, Regular Rate, Rhythm, No Edema, No Gallop, No JVD, No Murmur, No Rub (Female) Exam: Deferred Rectal (Female) Exam: Deferred Neurological: Alert, Normal Mood/Affect, Normal Dorsiflexion, CN II-XII Intact, Normal Plantar Flexion, Normal Gait, Normal Reflexes, No Motor/Sensory Deficits , Oriented x 3 Back Exam: Normal Inspection, Full Range of Motion, NT Extremities: Normal Inspection, Normal Range of Motion, Non-Tender, No Pedal Edema, Normal Capillary Refill Psychiatric: Normal Affect, Normal Mood Skin Exam: Warm Course - Vital Signs Last Recorded V/S: Last Vital Signs Temp 96.8 F 03/02/19 14:18 Pulse 67 03/02/19 14:18 Resp 16 03/02/19 14:18 BP 178/73 H 03/02/19 14:18 Pulse Ox 100 03/02/19 14:18 - Orders/Labs/Meds Orders: Active Orders 24 hr Category Date Time Status Blood Glucose Check, Bedside [RC] ONETIME Care 03/02/19 14:23 Active EKG Documentation Completion [RC] STAT Care 03/02/19 14:22 Active Peripheral IV Care [RC] . DIRECTED Care 03/02/19 14:23 Active Peripheral IV Insertion Adult [OM.PC] Stat Oth 03/02/19 14:22 Ordered Labs: Laboratory Tests 03/02/19 03/02/19 03/02/19 Range/Units 14:17 14:21 14:21 WBC 8.4 (5.0-10.0) 10^3/uL RBC 3.63 L (4.2-5.4) 10^6/uL Hgb 11.4 L (12.0-16.0) g/dL Hct 35.6 L (37.0-47.0) % MCV 98.1 (80-100) fL MCH 31.4 (27.0-34.0) pg MCHC 32.0 L (33.0-35.0) g/dL Plt Count 430 (150-450) 10^3/uL Neut % (Auto) 64.6 (42.2-75.2) % Lymph % (Auto) 17.1 L (20.5-50.1) % [place] % (Auto) 11.5 H (2-8) % Eos % (Auto) 5.5 H (1.0-3.0) % Baso % (Auto) 1.3 H (0.0-1.0) % PT 8.9 L (9.0-12.0) SEC INR 0.9 (0.9-1.2) Sodium (135-145) mmol/L Potassium (3.6-5.0) mmol/L Chloride (101-111) mmol/L Carbon Dioxide (21.0-31.0) mmol/L Anion Gap BUN (7-18) mg/dL Creatinine (0.6-1.3) mg/dL Est Cr Clr Drug Dosing Estimated GFR (MDRD) BUN/Creatinine Ratio Glucose (74-105) mg/dL POC Glucose 96 (83-110) mg/dl Calcium (8.4-10.2) mg/dl Total Bilirubin (0.2-1.0) mg/dL AST (10-42) IU/L ALT (10-60) IU/L Alkaline Phosphatase (42-121) IU/L Troponin I (0.00-0.02) ng/ml Total Protein (6.7-8.2) g/dl Albumin (3.2-5.5) g/dl Globulin Albumin/Globulin Ratio Urine Color (YELLOW) Urine Appearance (CLEAR) Urine pH (5.0-9.0) Ur Specific [place] (1.005-1.030) Urine Protein (NEGATIVE) Urine Glucose (UA) (NEGATIVE) Urine Ketones (NEGATIVE) Urine Occult Blood (NEGATIVE) Urine Nitrite (NEGATIVE) Urine Bilirubin (NEGATIVE) Urine Urobilinogen (0.2-1.0) mg/dL Ur Leukocyte Esterase (NEGATIVE) Urine RBC /HPF Urine WBC (0-5/HPF) /HPF Ur Epithelial Cells /HPF Amorphous Sediment (0/HPF) /HPF Urine Bacteria (0-FEW/HPF) /HPF Hyaline Casts /LPF Ethyl Alcohol mg/dL 03/02/19 03/02/19 Range/Units 14:21 15:35 WBC (5.0-10.0) 10^3/uL RBC (4.2-5.4) 10^6/uL Hgb (12.0-16.0) g/dL Hct (37.0-47.0) % MCV (80-100) fL MCH (27.0-34.0) pg MCHC (33.0-35.0) g/dL Plt Count (150-450) 10^3/uL Neut % (Auto) (42.2-75.2) % Lymph % (Auto) (20.5-50.1) % [place] % (Auto) (2-8) % Eos % (Auto) (1.0-3.0) % Baso % (Auto) (0.0-1.0) % PT (9.0-12.0) SEC INR (0.9-1.2) Sodium 136 (135-145) mmol/L Potassium 4.4 (3.6-5.0) mmol/L Chloride 100 L (101-111) mmol/L Carbon Dioxide 24.0 (21.0-31.0) mmol/L Anion Gap 16.4 BUN 31 H (7-18) mg/dL Creatinine 1.1 (0.6-1.3) mg/dL Est Cr Clr Drug Dosing TNP Estimated GFR (MDRD) 48 BUN/Creatinine Ratio 28.18 Glucose 103 (74-105) mg/dL POC Glucose (83-110) mg/dl Calcium 9.1 (8.4-10.2) mg/dl Total Bilirubin 0.8 (0.2-1.0) mg/dL AST 23 (10-42) IU/L ALT 16 (10-60) IU/L Alkaline Phosphatase 63 (42-121) IU/L Troponin I < 0.02 (0.00-0.02) ng/ml Total Protein 6.8 (6.7-8.2) g/dl Albumin 4.0 (3.2-5.5) g/dl Globulin 2.8 Albumin/Globulin Ratio 1.43 Urine Color Yellow (YELLOW) Urine Appearance Clear (CLEAR) Urine pH 7.5 (5.0-9.0) Ur Specific [place] 1.015 (1.005-1.030) Urine Protein 30 H (NEGATIVE) Urine Glucose (UA) Negative (NEGATIVE) Urine Ketones Negative (NEGATIVE) Urine Occult Blood Negative (NEGATIVE) Urine Nitrite Negative (NEGATIVE) Urine Bilirubin Negative (NEGATIVE) Urine Urobilinogen 0.2 (0.2-1.0) mg/dL Ur Leukocyte Esterase Negative (NEGATIVE) Urine RBC 0-5 /HPF Urine WBC 0-5 (0-5/HPF) /HPF Ur Epithelial Cells Few /HPF Amorphous Sediment Few (0/HPF) /HPF Urine Bacteria Few (0-FEW/HPF) /HPF Hyaline Casts Occasional H /LPF Ethyl Alcohol < 5 mg/dL Meds: Medications Discontinued Medications Generic Name Dose Route Start Last Admin Trade Name Freq PRN Reason Stop Dose Admin Sodium Chloride 10 ml 03/02/19 14:22 03/02/19 14:24 Saline Flush FLUSH 10 ml ASDIRECTED PRN Administration Keep Vein Open - Radiology Interpretation Free Text/Narrative:: Head CT: Chronic (increased) 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 No new intracranial mass, hydrocephalus or bleed. See rad report - Re-Assessments/Exams Free Text/Narrative Re-Assessment/Exam: Discussed the patient case with Dr. Glass who would like the [facility]. Patient case then discussed with Dr. Coy, Neurologist at [facility], as well as Dr. Gunn who agreed to accept the patient for transfer. Departure - Departure Time of Disposition: 16:27 Disposition: DC/Tfer to [facility] 02 Clinical Impression: Ischemic stroke - Discharge Information *PRESCRIPTION DRUG MONITORING PROGRAM REVIEWED*: No *COPY OF PRESCRIPTION DRUG MONITORING REPORT IN PATIENT ÁNGEL: No Referrals: PCP,None [Primary Care Provider] - Forms: ED Department Discharge, Interfacility Transfer TERELL - My Orders Last 24 Hours: My Active Orders 03/02/19 14:22 EKG Documentation Completion [RC] STAT Peripheral IV Insertion Adult [OM.PC] Stat 03/02/19 14:23 Blood Glucose Check, Bedside [RC] ONETIME Peripheral IV Care [RC] . DIRECTED - Assessment/Plan Last 24 Hours: My Active Orders 03/02/19 14:22 EKG Documentation Completion [RC] STAT Peripheral IV Insertion Adult [OM.PC] Stat 03/02/19 14:23 Blood Glucose Check, Bedside [RC] ONETIME Peripheral IV Care [RC] . DIRECTED
== END 2019-03-02 16:24 ==
LOC: DL.ED 14:13
DX: I63.9 Cerebral infarction, unspecified (principal); I10 Essential (primary) hypertension; K21.9 Gastro-esophageal reflux disease without esophagitis; E03.9 Hypothyroidism, unspecified; Z88.0 Allergy status to penicillin; Z79.899 Other long term (current) drug therapy; R29.715 NIHSS score 15
CPT/HCPCS: 36415; 70450; 80053; 81001; 82962; 84484; 85025; 85610; 93005; 99285; G0480

== ENCOUNTER 2022-07-15 12:55 | Emergency (ER) | payer MEDICARE, BC ==
[2022-07-15] MEDS ORDERED: Sodium Chloride 0.9% 10 ML Syringe FLUSH PRN (13:08)
[2022-07-15 13:40] LABS: PTT,PARTIAL THROMBOPLSTIN TIME 47.9 SEC (22.0-34.0)
[2022-07-15 13:46] LABS: ANION GAP 9.4 mEq/L (7-13); CHLORIDE,CL 99 mmol/L (98-107); ESTIMATED GFR 42 mL/min (>=60); SODIUM,NA 135 mmol/L (136-145)
== END 2022-07-15 14:10 | disposition home or self-care (01) ==
LOC: DL.ED 12:55
DX: S01.01XA Laceration without foreign body of scalp, initial encounter (principal); I10 Essential (primary) hypertension; K21.9 Gastro-esophageal reflux disease without esophagitis; E03.9 Hypothyroidism, unspecified; Z79.899 Other long term (current) drug therapy; Z88.0 Allergy status to penicillin; W01.198A Fall on same level from slipping, tripping and stumbling with subsequent striking against other object, initial encounter
CPT/HCPCS: 36415; 70450; 80053; 82947; 84484; 85025; 85610; 85730; 93010; 99284

== ENCOUNTER 2023-09-20 11:13 | Inpatient (IN) | payer MEDICARE, BC ==
[~2023-09-20 11:13] MED LIST: Sodium Chloride 0.9% 10 ML Syringe FLUSH PRN
[2023-09-20 11:30] LABS: BASOPHILS PERCENT AUTO 0.5 % (0.0-1.0); EOSINOPHILS PERCENT AUTO 0.1 % (1.0-3.0); HEMATOCRIT 37.3 % (37.0-47.0); LYMPHOCYTES PERCENT AUTO 6.8 % (20.5-50.1); MEAN CORPUSCULAR HGB CONC 32.2 g/dL (33.0-35.0); MEAN CORPUSCULAR VOLUME 99.5 fL (80-100); MONOCYTES PERCENT AUTO 15.8 % (2-8); NEUTROPHILS PERCENT AUTO 76.8 % (42.2-75.2); PLATELET COUNT,PLT 287 10^3/uL (150-450); RED BLOOD CELL COUNT 3.75 10^6/uL (4.2-5.4); WHITE BLOOD CELL COUNT,WBC 11.1 10^3/uL (5.0-10.0)
[2023-09-20] MEDS ORDERED: Acetaminophen 500 MG Tab PO ONE (11:43)
[2023-09-20 11:47] LABS: INR 2.3 (0.9-1.2); PROTHROMBIN TIME 22.8 SEC (9.0-12.0)
[2023-09-20 11:47] LABS: APPEARANCE,URINE CLEAR (CLEAR); BILIRUBIN,URINE NEGATIVE (NEGATIVE); COLOR,URINE YELLOW (YELLOW); GLUCOSE,URINE NEGATIVE (NEGATIVE); KETONES,URINE NEGATIVE (NEGATIVE); LEUKOCYTE ESTERASE,URINE NEGATIVE (NEGATIVE); NITRITE,URINE NEGATIVE (NEGATIVE); OCCULT BLOOD,URINE TRACE-INTACT (NEGATIVE); PH,URINE 7.5 (5.0-9.0); PROTEIN,URINE 100 (NEGATIVE); UROBILINOGEN,URINE 0.2 mg/dL (0.2-1.0)
[2023-09-20 11:51] LABS: ALBUMIN 3.4 g/dL (3.4-5.0); BLOOD UREA NITROGEN,BUN 22 mg/dL (7-18); BUN/CREATININE RATIO 16.4 (No establ ref range); CALCIUM 8.7 mg/dL (8.5-10.1); CARBON DIOXIDE,CO2 27 mmol/L (21-32); CHLORIDE,CL 98 mmol/L (98-107); CREATININE 1.34 mg/dL (0.55-1.02); GLUCOSE RANDOM 106 mg/dL (70-99); PROTEIN TOTAL,TP 7.7 g/dL (6.4-8.2); SODIUM,NA 133 mmol/L (136-145)
[2023-09-20 11:52] LABS: A/G RATIO 0.8; ALANINE AMINOTRANSFERASE,ALT 26 U/L (14-59); ALKALINE PHOSPHATASE 80 U/L (46-116); ASPARTATE AMNIOTRANSFERASE,AST 29 U/L (15-37); BILIRUBIN TOTAL 0.6 mg/dL (0.2-1.0); C-REACTIVE PROTEIN 9.42 ng/dL (<=0.50); MAGNESIUM 1.8 mg/dL (1.8-2.4)
[2023-09-20 11:56] LABS: ESTIMATED GFR 40 mL/min (>=60)
[2023-09-20 11:56] LABS: AMORPHOUS SEDIMENT,URINE FEW /HPF (NOT SEEN); BACTERIA,URINE FEW /HPF (0-FEW/HPF); EPITHELIAL CELLS,URINE FEW /HPF (NOT SEEN); MUCUS,URINE FEW /LPF (NOT SEEN); RBC,URINE 0-5 /HPF (0-5); WBC,URINE 0-5 /HPF (0-5/HPF)
[2023-09-20 11:57] LABS: LACTIC ACID 1.5 mmol/L (0.4-2.0)
[2023-09-20] MEDS ORDERED: Acetaminophen 325 MG Tab PO PRN (14:16)
[2023-09-20] MEDS ORDERED: Sennosides/Docusate Sodium 50-8.6 MG Tab PO PRN (14:16)
[2023-09-20] MEDS ORDERED: Albuterol/Ipratropium 3.0-0.5 MG/3 ML Neb Soln NEB PRN (14:16)
[2023-09-20] MEDS ORDERED: Ondansetron 4 MG/2 ML SDV IVPUSH PRN (14:16)
[2023-09-20] MEDS ORDERED: HYDROmorphone 0.5 MG/0.5 ML Syringe IVPUSH PRN (14:16)
[2023-09-20] MEDS ORDERED: Magnesium Hydroxide 400 MG/5 ML Susp 30 ML Cup PO PRN (14:16)
[2023-09-20] MEDS ORDERED: Polyethylene Glycol 3350 Powder 17 GM Packet PO PRN (14:16)
[2023-09-20] MEDS ORDERED: Aspirin 325 MG Tab PO ONE (14:28)
[2023-09-20] MEDS ORDERED: Aspirin 81 MG Tab.EC PO ONE (14:28)
[2023-09-20] MEDS ORDERED: Oxymetazoline 0.05% Nasal Spray 30 ML Bottle NAS PRN (14:45)
[2023-09-20] MEDS ORDERED: guaiFENesin/Dextromethorphan 100-10 MG/5 ML Soln 5 ML Cup PO PRN (14:45)
[2023-09-20 14:56] LABS: BILIRUBIN DIRECT 0.2 mg/dL (0.0-0.2)
[2023-09-20 14:58] LABS: HEMOGLOBIN A1C 5.7 % (<5.7)
[2023-09-20] MEDS ORDERED: REMDESIVIR 200 MG in Sodium Chloride 0.9% 250 ML IV ONE (15:00)
[2023-09-20] MEDS ORDERED: Psyllium Husk Powder Sugar Free 5.85 GM Packet PO PRN (15:05)
[2023-09-20] MEDS: Isosorbide Mononitrate 60 MG Tab.ER PO SCH (15:22)
[2023-09-20] MEDS: Warfarin 2.5 MG Tab PO SCH (15:22)
[2023-09-20] MEDS: guaiFENesin 600 MG Tab.ER PO SCH (21:02)
[2023-09-20] MEDS: Timolol Maleate 0.5% Ophth Soln 5 ML Bottle EYEBOTH SCH (21:03)
[2023-09-20] MEDS: Latanoprost 0.005% Ophth Soln 2.5 ML Bottle EYEBOTH SCH (21:03)
[2023-09-21] MEDS: Levothyroxine 88 MCG Tab PO SCH (04:59)
[2023-09-21] MEDS: Isosorbide Mononitrate 60 MG Tab.ER PO SCH ×2 (04:59→16:12)
[2023-09-21 06:33] LABS: BASOPHILS PERCENT AUTO 0.5 % (0.0-1.0); EOSINOPHILS PERCENT AUTO 0.1 % (1.0-3.0); HEMATOCRIT 33.1 % (37.0-47.0); HEMOGLOBIN 10.7 g/dL (12.0-16.0); LYMPHOCYTES PERCENT AUTO 9.6 % (20.5-50.1); MEAN CORPUSCULAR HEMOGLOBIN 32.1 pg (27.0-34.0); MEAN CORPUSCULAR HGB CONC 32.3 g/dL (33.0-35.0); MEAN CORPUSCULAR VOLUME 99.4 fL (80-100); MONOCYTES PERCENT AUTO 15.7 % (2-8); NEUTROPHILS PERCENT AUTO 74.1 % (42.2-75.2); PLATELET COUNT,PLT 237 10^3/uL (150-450); RED BLOOD CELL COUNT 3.33 10^6/uL (4.2-5.4); WHITE BLOOD CELL COUNT,WBC 7.3 10^3/uL (5.0-10.0)
[2023-09-21 06:58] LABS: ALBUMIN 2.8 g/dL (3.4-5.0); ANION GAP 13.1 mEq/L (7-13); BILIRUBIN TOTAL 0.4 mg/dL (0.2-1.0); BUN/CREATININE RATIO 17.7 (No establ ref range); C-REACTIVE PROTEIN 14.67 ng/dL (<=0.50); CALCIUM 8.1 mg/dL (8.5-10.1); CREATININE 1.13 mg/dL (0.55-1.02); EST CRCL DRUG DOSING (CG) 29.46 mL/min; MAGNESIUM 1.9 mg/dL (1.8-2.4); POTASSIUM,K 4.1 mmol/L (3.5-5.1); PROTEIN TOTAL,TP 6.5 g/dL (6.4-8.2)
[2023-09-21 06:59] LABS: A/G RATIO 0.76
[2023-09-21 07:53] LABS: INR 2.5 (0.9-1.2); PROTHROMBIN TIME 24.6 SEC (9.0-12.0)
[2023-09-21] MEDS: Lisinopril 10 MG Tab PO SCH (08:47)
[2023-09-21] MEDS: guaiFENesin 600 MG Tab.ER PO SCH ×2 (08:47→22:31)
[2023-09-21] MEDS: Diltiazem 120 MG Cap.CD PO SCH (08:47)
[2023-09-21] MEDS: Pantoprazole 40 MG Tab.CR PO SCH (08:48)
[2023-09-21] MEDS: amLODIPine 5 MG Tab PO SCH (08:48)
[2023-09-21] MEDS: REMDESIVIR 100 MG in Sodium Chloride 0.9% 100 ML IV SCH (08:49)
[2023-09-21] MEDS: Timolol Maleate 0.5% Ophth Soln 5 ML Bottle EYEBOTH SCH ×2 (09:05→22:31)
[2023-09-21] MEDS ORDERED: Aspirin 81 MG Tab.Chew PO ONE (12:00)
[2023-09-21] MEDS: Warfarin 2.5 MG Tab PO SCH (12:56)
[2023-09-21] MEDS: Latanoprost 0.005% Ophth Soln 2.5 ML Bottle EYEBOTH SCH (22:31)
[2023-09-22] MEDS: Levothyroxine 88 MCG Tab PO SCH (05:29)
[2023-09-22] MEDS: Isosorbide Mononitrate 60 MG Tab.ER PO SCH ×2 (05:30→16:07)
[2023-09-22 06:46] LABS: INR 2.4 (0.9-1.2); PROTHROMBIN TIME 24.3 SEC (9.0-12.0)
[2023-09-22 06:49] LABS: BASOPHILS PERCENT AUTO 0.6 % (0.0-1.0); EOSINOPHILS PERCENT AUTO 1.1 % (1.0-3.0); HEMATOCRIT 33.7 % (37.0-47.0); HEMOGLOBIN 10.8 g/dL (12.0-16.0); LYMPHOCYTES PERCENT AUTO 13.9 % (20.5-50.1); MEAN CORPUSCULAR HEMOGLOBIN 31.9 pg (27.0-34.0); MEAN CORPUSCULAR VOLUME 99.4 fL (80-100); MONOCYTES PERCENT AUTO 16.6 % (2-8); NEUTROPHILS PERCENT AUTO 67.8 % (42.2-75.2); PLATELET COUNT,PLT 239 10^3/uL (150-450); RED BLOOD CELL COUNT 3.39 10^6/uL (4.2-5.4); WHITE BLOOD CELL COUNT,WBC 6.3 10^3/uL (5.0-10.0)
[2023-09-22 06:59] LABS: C-REACTIVE PROTEIN 12.7 ng/dL (<=0.50); T4 FREE 1.97 ng/dL (0.76-1.46)
[2023-09-22] MEDS: amLODIPine 5 MG Tab PO SCH (08:47)
[2023-09-22] MEDS: Lisinopril 10 MG Tab PO SCH (08:47)
[2023-09-22] MEDS: Pantoprazole 40 MG Tab.CR PO SCH (08:47)
[2023-09-22] MEDS: Diltiazem 120 MG Cap.CD PO SCH (08:47)
[2023-09-22] MEDS: guaiFENesin 600 MG Tab.ER PO SCH ×2 (08:47→20:48)
[2023-09-22] MEDS: Aspirin 81 MG Tab.Chew PO SCH (08:47)
[2023-09-22] MEDS: Timolol Maleate 0.5% Ophth Soln 5 ML Bottle EYEBOTH SCH ×2 (08:48→20:49)
[2023-09-22] MEDS: REMDESIVIR 100 MG in Sodium Chloride 0.9% 100 ML IV SCH (08:49)
[2023-09-22] MEDS: Warfarin 2.5 MG Tab PO SCH (13:22)
[2023-09-22] MEDS: Latanoprost 0.005% Ophth Soln 2.5 ML Bottle EYEBOTH SCH (20:49)
[2023-09-23] MEDS: Isosorbide Mononitrate 60 MG Tab.ER PO SCH ×2 (05:26→17:04)
[2023-09-23] MEDS: Levothyroxine 88 MCG Tab PO SCH (05:26)
[2023-09-23 06:37] LABS: BASOPHILS PERCENT AUTO 0.6 % (0.0-1.0); EOSINOPHILS PERCENT AUTO 2.8 % (1.0-3.0); HEMATOCRIT 33.4 % (37.0-47.0); HEMOGLOBIN 10.7 g/dL (12.0-16.0); LYMPHOCYTES PERCENT AUTO 19.2 % (20.5-50.1); MEAN CORPUSCULAR HEMOGLOBIN 31.6 pg (27.0-34.0); MEAN CORPUSCULAR VOLUME 98.5 fL (80-100); MONOCYTES PERCENT AUTO 15.2 % (2-8); NEUTROPHILS PERCENT AUTO 62.2 % (42.2-75.2); PLATELET COUNT,PLT 256 10^3/uL (150-450); RED BLOOD CELL COUNT 3.39 10^6/uL (4.2-5.4); WHITE BLOOD CELL COUNT,WBC 4.9 10^3/uL (5.0-10.0)
[2023-09-23 07:07] LABS: ALBUMIN 2.6 g/dL (3.4-5.0); ANION GAP 12.8 mEq/L (7-13); BILIRUBIN TOTAL 0.4 mg/dL (0.2-1.0); C-REACTIVE PROTEIN 8.22 ng/dL (<=0.50); CALCIUM 8.2 mg/dL (8.5-10.1); EST CRCL DRUG DOSING (CG) 33.29 mL/min; POTASSIUM,K 3.8 mmol/L (3.5-5.1); PROTEIN TOTAL,TP 6.1 g/dL (6.4-8.2)
[2023-09-23 07:08] LABS: A/G RATIO 0.74; INR 2.3 (0.9-1.2); PROTHROMBIN TIME 22.9 SEC (9.0-12.0)
[2023-09-23] MEDS: Diltiazem 120 MG Cap.CD PO SCH (09:11)
[2023-09-23] MEDS: Aspirin 81 MG Tab.Chew PO SCH (09:11)
[2023-09-23] MEDS: guaiFENesin 600 MG Tab.ER PO SCH ×2 (09:11→20:44)
[2023-09-23] MEDS: Pantoprazole 40 MG Tab.CR PO SCH (09:12)
[2023-09-23] MEDS: Lisinopril 10 MG Tab PO SCH (09:12)
[2023-09-23] MEDS: amLODIPine 5 MG Tab PO SCH (09:12)
[2023-09-23] MEDS: Timolol Maleate 0.5% Ophth Soln 5 ML Bottle EYEBOTH SCH ×2 (09:13→20:44)
[2023-09-23] MEDS: REMDESIVIR 100 MG in Sodium Chloride 0.9% 100 ML IV SCH (09:19)
[2023-09-23] MEDS: Warfarin 2.5 MG Tab PO SCH (13:06)
[2023-09-23] MEDS: Latanoprost 0.005% Ophth Soln 2.5 ML Bottle EYEBOTH SCH (20:45)
[2023-09-24] MEDS: Isosorbide Mononitrate 60 MG Tab.ER PO SCH (05:41)
[2023-09-24] MEDS: Levothyroxine 88 MCG Tab PO SCH (05:41)
[2023-09-24 06:46] LABS: BASOPHILS PERCENT AUTO 0.7 % (0.0-1.0); EOSINOPHILS PERCENT AUTO 2.8 % (1.0-3.0); HEMATOCRIT 35.7 % (37.0-47.0); HEMOGLOBIN 11.5 g/dL (12.0-16.0); LYMPHOCYTES PERCENT AUTO 15.7 % (20.5-50.1); MEAN CORPUSCULAR HEMOGLOBIN 31.7 pg (27.0-34.0); MEAN CORPUSCULAR HGB CONC 32.2 g/dL (33.0-35.0); MEAN CORPUSCULAR VOLUME 98.3 fL (80-100); MONOCYTES PERCENT AUTO 14.7 % (2-8); NEUTROPHILS PERCENT AUTO 66.1 % (42.2-75.2); PLATELET COUNT,PLT 278 10^3/uL (150-450); RED BLOOD CELL COUNT 3.63 10^6/uL (4.2-5.4); WHITE BLOOD CELL COUNT,WBC 7.1 10^3/uL (5.0-10.0)
[2023-09-24 06:58] LABS: INR 2.6 (0.9-1.2); PROTHROMBIN TIME 25.6 SEC (9.0-12.0)
[2023-09-24 06:59] LABS: ALBUMIN 2.8 g/dL (3.4-5.0); ANION GAP 11.5 mEq/L (7-13); BILIRUBIN TOTAL 0.4 mg/dL (0.2-1.0); BUN/CREATININE RATIO 19.5 (No establ ref range); C-REACTIVE PROTEIN 6.51 ng/dL (<=0.50); CALCIUM 8.7 mg/dL (8.5-10.1); CREATININE 1.13 mg/dL (0.55-1.02); EST CRCL DRUG DOSING (CG) 29.46 mL/min; POTASSIUM,K 4.5 mmol/L (3.5-5.1); PROTEIN TOTAL,TP 6.5 g/dL (6.4-8.2)
[2023-09-24 07:02] LABS: A/G RATIO 0.76
[2023-09-24] MEDS: REMDESIVIR 100 MG in Sodium Chloride 0.9% 100 ML IV SCH (08:46)
[2023-09-24] MEDS: amLODIPine 5 MG Tab PO SCH (08:47)
[2023-09-24] MEDS: Aspirin 81 MG Tab.Chew PO SCH (08:47)
[2023-09-24] MEDS: guaiFENesin 600 MG Tab.ER PO SCH (08:48)
[2023-09-24] MEDS: Diltiazem 120 MG Cap.CD PO SCH (08:48)
[2023-09-24] MEDS: Pantoprazole 40 MG Tab.CR PO SCH (08:48)
[2023-09-24] MEDS: Lisinopril 10 MG Tab PO SCH (08:48)
[2023-09-24] MEDS: Timolol Maleate 0.5% Ophth Soln 5 ML Bottle EYEBOTH SCH (08:49)
[2023-09-24 09:05] VITALS: BP 129/68; PULSE 65
[2023-09-24] MEDS ORDERED: Warfarin 2.5 MG Tab PO SCH (13:00)
== END 2023-09-24 11:52 | disposition other institution (70) | DRG 178 ==
LOC: DL.ED 11:13 → DL.MS 12:26 → UNDOADMIN 12:26 → DL.MS 14:17 → UNDOADMIN 15:26 → DL.MS 15:26
PROVIDERS: ADMIT Internal Medicine; ATTEND Internal Medicine
PROC: XW033E5 Introduction of Remdesivir Anti-infective into Peripheral Vein, Percutaneous Approach, New Technology Group 5 (ICD-10-PCS; principal; 2023-09-20)
PROC: 8E0ZXY6 Isolation (ICD-10-PCS; 2023-09-20)
DX: U07.1 COVID-19 (principal); E87.1 Hypo-osmolality and hyponatremia; G45.9 Transient cerebral ischemic attack, unspecified; I13.0 Hypertensive heart and chronic kidney disease with heart failure and stage 1 through stage 4 chronic kidney disease, or unspecified chronic kidney disease; I48.20 Chronic atrial fibrillation, unspecified; I50.20 Unspecified systolic (congestive) heart failure; M19.90 Unspecified osteoarthritis, unspecified site; Z66 Do not resuscitate; K21.9 Gastro-esophageal reflux disease without esophagitis; Z96.659 Presence of unspecified artificial knee joint; E89.0 Postprocedural hypothyroidism; E78.5 Hyperlipidemia, unspecified; N18.30 Chronic kidney disease, stage 3 unspecified; D63.1 Anemia in chronic kidney disease; Z96.611 Presence of right artificial shoulder joint; D72.829 Elevated white blood cell count, unspecified; R26.89 Other abnormalities of gait and mobility; Z79.01 Long term (current) use of anticoagulants; Z88.0 Allergy status to penicillin; Z79.899 Other long term (current) drug therapy; Z79.82 Long term (current) use of aspirin; Z90.89 Acquired absence of other organs; Z98.890 Other specified postprocedural states; Z87.891 Personal history of nicotine dependence; Z99.3 Dependence on wheelchair
CPT/HCPCS: 36415; 70450; 71045; 80053; 80061; 81001; 82140; 82248; 82306; 82550; 83036; 83605; 83735; 84439; 84484; 85025; 85610; 86140; 93005; 93010; 97161-GP; 97165-GO; 99284; 99285; A9270-GY; J0248; J3490; J7050

== ENCOUNTER 2023-10-09 11:18 | Emergency (ER) | payer MEDICARE, BC ==
[2023-10-09 11:41] LABS: BASOPHILS PERCENT AUTO 0.3 % (0.0-1.0); EOSINOPHILS PERCENT AUTO 2.5 % (1.0-3.0); HEMATOCRIT 35.1 % (37.0-47.0); LYMPHOCYTES PERCENT AUTO 16.1 % (20.5-50.1); MEAN CORPUSCULAR HEMOGLOBIN 31.8 pg (27.0-34.0); MEAN CORPUSCULAR HGB CONC 31.3 g/dL (33.0-35.0); MEAN CORPUSCULAR VOLUME 101.4 fL (80-100); MONOCYTES PERCENT AUTO 15.7 % (2-8); NEUTROPHILS PERCENT AUTO 65.4 % (42.2-75.2); PLATELET COUNT,PLT 312 10^3/uL (150-450); RED BLOOD CELL COUNT 3.46 10^6/uL (4.2-5.4); WHITE BLOOD CELL COUNT,WBC 6.4 10^3/uL (5.0-10.0)
[2023-10-09 12:01] LABS: INR 3.3 (0.9-1.2); PROTHROMBIN TIME 32.1 SEC (9.0-12.0); PTT,PARTIAL THROMBOPLSTIN TIME 46.5 SEC (22.0-34.0)
[2023-10-09 12:04] LABS: ALANINE AMINOTRANSFERASE,ALT 24 U/L (14-59); ALBUMIN 3.1 g/dL (3.4-5.0); ALKALINE PHOSPHATASE 80 U/L (46-116); ANION GAP 9.3 mEq/L (7-13); ASPARTATE AMNIOTRANSFERASE,AST 26 U/L (15-37); BILIRUBIN TOTAL 0.4 mg/dL (0.2-1.0); BLOOD UREA NITROGEN,BUN 22 mg/dL (7-18); BUN/CREATININE RATIO 16.8 (No establ ref range); CALCIUM 9.1 mg/dL (8.5-10.1); CARBON DIOXIDE,CO2 32 mmol/L (21-32); CHLORIDE,CL 101 mmol/L (98-107); CREATININE 1.31 mg/dL (0.55-1.02); GLUCOSE RANDOM 91 mg/dL (70-99); POTASSIUM,K 4.3 mmol/L (3.5-5.1); PROTEIN TOTAL,TP 6.6 g/dL (6.4-8.2); SODIUM,NA 138 mmol/L (136-145)
[2023-10-09 12:05] LABS: A/G RATIO 0.89; ESTIMATED GFR 41 mL/min (>=60)
[2023-10-09 12:06] LABS: ETHANOL BLOOD MEDICAL < 3 mg/dL (0)
[2023-10-09 12:34] LABS: APPEARANCE,URINE CLEAR (CLEAR); BILIRUBIN,URINE NEGATIVE (NEGATIVE); COLOR,URINE YELLOW (YELLOW); GLUCOSE,URINE NEGATIVE (NEGATIVE); KETONES,URINE NEGATIVE (NEGATIVE); LEUKOCYTE ESTERASE,URINE NEGATIVE (NEGATIVE); NITRITE,URINE NEGATIVE (NEGATIVE); OCCULT BLOOD,URINE NEGATIVE (NEGATIVE); PROTEIN,URINE NEGATIVE (NEGATIVE); UROBILINOGEN,URINE 0.2 mg/dL (0.2-1.0)
[2023-10-09 12:42] LABS: AMPHETAMINES,URINE NEGATIVE (NEGATIVE); BARBITURATES,URINE NEGATIVE (NEGATIVE); BENZODIAZEPINE,URINE NEGATIVE (NEGATIVE); MDMA (ECSTASY), URINE NEGATIVE (NEGATIVE); METHADONE,URINE POSITIVE (NEGATIVE); METHAMPHETAMINES,URINE NEGATIVE (NEGATIVE); OPIATES,URINE NEGATIVE (NEGATIVE); OXYCODONE,URINE NEGATIVE (NEGATIVE); PHENCYCLIDINE,URINE NEGATIVE (NEGATIVE); TCA,URINE NEGATIVE (NEGATIVE)
== END 2023-10-09 13:08 | disposition home or self-care (01) ==
LOC: DL.ED 11:18
DX: S00.03XA Contusion of scalp, initial encounter (principal); S60.221A Contusion of right hand, initial encounter; K21.9 Gastro-esophageal reflux disease without esophagitis; I10 Essential (primary) hypertension; Z88.0 Allergy status to penicillin; Z79.899 Other long term (current) drug therapy; Z79.01 Long term (current) use of anticoagulants; Z86.16 Personal history of COVID-19; Z79.82 Long term (current) use of aspirin; W18.39XA Other fall on same level, initial encounter
CPT/HCPCS: 36415; 70450; 71045; 72125; 72170; 80053; 80305-QW; 80307; 81003; 82947; 84484; 85025; 85610; 85730; 93005; 93010; 99284; 99285; J3490

== ENCOUNTER 2023-10-18 11:20 | Emergency (ER) | payer MEDICARE, BC ==
[2023-10-18 11:45] VITALS: BP 133/71; PULSE 79
== END 2023-10-18 12:46 | disposition home or self-care (01) ==
LOC: DL.ED 11:20
DX: S00.93XA Contusion of unspecified part of head, initial encounter (principal); I10 Essential (primary) hypertension; E03.9 Hypothyroidism, unspecified; M19.90 Unspecified osteoarthritis, unspecified site; K21.9 Gastro-esophageal reflux disease without esophagitis; Z88.0 Allergy status to penicillin; Z79.01 Long term (current) use of anticoagulants; Z86.16 Personal history of COVID-19; Z79.82 Long term (current) use of aspirin; Z79.899 Other long term (current) drug therapy; Z79.2 Long term (current) use of antibiotics; W22.8XXA Striking against or struck by other objects, initial encounter
CPT/HCPCS: 70450; 99284

== ENCOUNTER 2024-08-24 11:04 | Emergency (ER) | payer MEDICARE, BC ==
[2024-08-24 11:19] LABS: BASOPHILS PERCENT AUTO 0.5 % (0.0-1.0); EOSINOPHILS PERCENT AUTO 1.3 % (1.0-3.0); HEMATOCRIT 37.9 % (37.0-47.0); HEMOGLOBIN 11.9 g/dL (12.0-16.0); LYMPHOCYTES PERCENT AUTO 8.3 % (20.5-50.1); MEAN CORPUSCULAR HEMOGLOBIN 31.5 pg (27.0-34.0); MEAN CORPUSCULAR HGB CONC 31.4 g/dL (33.0-35.0); MEAN CORPUSCULAR VOLUME 100.3 fL (80-100); MONOCYTES PERCENT AUTO 10.2 % (2-8); NEUTROPHILS PERCENT AUTO 79.7 % (42.2-75.2); PLATELET COUNT,PLT 275 10^3/uL (150-450); RED BLOOD CELL COUNT 3.78 10^6/uL (4.2-5.4); WHITE BLOOD CELL COUNT,WBC 12.2 10^3/uL (5.0-10.0)
[2024-08-24 11:41] LABS: APPEARANCE,URINE CLOUDY (CLEAR); BILIRUBIN,URINE SMALL (NEGATIVE); GLUCOSE,URINE NEGATIVE (NEGATIVE); KETONES,URINE NEGATIVE (NEGATIVE); LEUKOCYTE ESTERASE,URINE LARGE (NEGATIVE); NITRITE,URINE NEGATIVE (NEGATIVE); OCCULT BLOOD,URINE LARGE (NEGATIVE); PROTEIN,URINE >=300 (NEGATIVE)
[2024-08-24 11:43] LABS: COLOR,URINE RED (YELLOW)
[2024-08-24 11:45] LABS: RBC,URINE PACKED /HPF (0-5)
[2024-08-24 11:46] LABS: EPITHELIAL CELLS,URINE FEW /HPF (NOT SEEN)
[2024-08-24 11:47] LABS: BACTERIA,URINE RARE /HPF (0-FEW/HPF)
[2024-08-24 11:54] LABS: ALANINE AMINOTRANSFERASE,ALT 19 U/L (14-59); ALBUMIN 3.3 g/dL (3.4-5.0); ALKALINE PHOSPHATASE 86 U/L (46-116); ANION GAP 10.5 mEq/L (7-13); ASPARTATE AMNIOTRANSFERASE,AST 23 U/L (15-37); BILIRUBIN TOTAL 0.6 mg/dL (0.2-1.0); BLOOD UREA NITROGEN,BUN 22 mg/dL (7-18); BUN/CREATININE RATIO 16.7 (No establ ref range); C-REACTIVE PROTEIN 0.71 ng/dL (<=0.50); CALCIUM 9.2 mg/dL (8.5-10.1); CARBON DIOXIDE,CO2 30 mmol/L (21-32); CHLORIDE,CL 101 mmol/L (98-107); CREATININE 1.32 mg/dL (0.55-1.02); GLUCOSE RANDOM 91 mg/dL (70-99); MAGNESIUM 1.7 mg/dL (1.8-2.4); POTASSIUM,K 4.5 mmol/L (3.5-5.1); PROTEIN TOTAL,TP 6.8 g/dL (6.4-8.2); SODIUM,NA 137 mmol/L (136-145)
[2024-08-24 11:57] LABS: A/G RATIO 0.94; ESTIMATED GFR 40 mL/min (>=60)
[2024-08-24] MEDS: Sodium Chloride 0.9% 10 ML Syringe FLUSH PRN (12:15)
[2024-08-24] MEDS: cefTRIAXone 2 GM Vial IVPUSH ONE (12:15)
[2024-08-26] MEDS ORDERED: Lactated Ringers 1,000 ML IV ONE (07:47)
== END 2024-08-24 12:45 | disposition home or self-care (01) ==
LOC: DL.ED 11:04
DX: N30.01 Acute cystitis with hematuria (principal); I10 Essential (primary) hypertension; K21.9 Gastro-esophageal reflux disease without esophagitis; E03.9 Hypothyroidism, unspecified; Z86.16 Personal history of COVID-19; Z79.899 Other long term (current) drug therapy; Z79.01 Long term (current) use of anticoagulants; Z79.82 Long term (current) use of aspirin; Z88.0 Allergy status to penicillin
CPT/HCPCS: 36415; 70450; 72125; 80053; 81001; 83735; 85025; 86140; 87086; 87088; 87186; 93005; 93010; 96374; 99284; 99285; J0696; J3490

== ENCOUNTER 2025-09-12 19:06 | Emergency (ER) | payer MEDICARE, BC ==
[2025-09-12 19:15] VITALS: BP 181/76; PULSE 80
== END 2025-09-12 19:51 | disposition home or self-care (01) ==
LOC: DL.ED 19:06
DX: R04.0 Epistaxis (principal); I10 Essential (primary) hypertension; K21.9 Gastro-esophageal reflux disease without esophagitis; E03.9 Hypothyroidism, unspecified; Z88.0 Allergy status to penicillin; Z79.890 Hormone replacement therapy; Z79.899 Other long term (current) drug therapy; Z79.01 Long term (current) use of anticoagulants; Z79.82 Long term (current) use of aspirin; Z86.16 Personal history of COVID-19
CPT/HCPCS: 99283; A9270

== ENCOUNTER 2025-10-12 09:13 | Emergency (ER) | payer MEDICARE, BC ==
[2025-10-12] MEDS ORDERED: Sodium Chloride 0.9% 10 ML Syringe FLUSH PRN (09:28)
[2025-10-12 09:37] LABS: BASOPHILS PERCENT AUTO 0.8 % (0.0-1.0); EOSINOPHILS PERCENT AUTO 4.1 % (1.0-3.0); LYMPHOCYTES PERCENT AUTO 10.1 % (20.5-50.1); MONOCYTES PERCENT AUTO 12.7 % (2-8); NEUTROPHILS PERCENT AUTO 72.3 % (42.2-75.2); PLATELET COUNT,PLT 291 10^3/uL (150-450); RED BLOOD CELL COUNT 3.61 10^6/uL (4.2-5.4); WHITE BLOOD CELL COUNT,WBC 6.5 10^3/uL (5.0-10.0)
[2025-10-12 09:52] LABS: ALANINE AMINOTRANSFERASE,ALT 28.0 U/L (14-59); ASPARTATE AMNIOTRANSFERASE,AST 27.0 U/L (15-37); BILIRUBIN TOTAL 0.6 mg/dL (0.2-1.0); BLOOD UREA NITROGEN,BUN 18.0 mg/dL (7-18); CARBON DIOXIDE,CO2 32.0 mmol/L (21-32); CHLORIDE,CL 105.0 mmol/L (98-107); CREATININE 1.19 mg/dL (0.55-1.02); EST CRCL DRUG DOSING (CG) 27.03 mL/min; GLUCOSE RANDOM 92.0 mg/dL (70-99); POTASSIUM,K 4.7 mmol/L (3.5-5.1); PROTEIN TOTAL,TP 7.6 g/dL (6.4-8.2); SODIUM,NA 143.0 mmol/L (136-145)
[2025-10-12 09:53] LABS: A/G RATIO 0.69; ESTIMATED GFR 45.0 mL/min (>=60)
[2025-10-12] MEDS ORDERED: Glycerin 2.8 GM/2.7 ML 4ML Supp RECTAL ONE (10:04)
[2025-10-12 10:05] LABS: INR 1.4 (0.9-1.2)
[2025-10-12 11:02] VITALS: BP 131/58; PULSE 62
== END 2025-10-12 10:53 | disposition home or self-care (01) ==
LOC: DL.ED 09:13
DX: I48.20 Chronic atrial fibrillation, unspecified (principal); R04.0 Epistaxis; R79.1 Abnormal coagulation profile; N28.9 Disorder of kidney and ureter, unspecified; I10 Essential (primary) hypertension; K21.9 Gastro-esophageal reflux disease without esophagitis; M19.90 Unspecified osteoarthritis, unspecified site; E03.9 Hypothyroidism, unspecified; Z88.0 Allergy status to penicillin; Z79.899 Other long term (current) drug therapy; Z79.890 Hormone replacement therapy; Z79.01 Long term (current) use of anticoagulants; Z79.82 Long term (current) use of aspirin; Z86.16 Personal history of COVID-19
CPT/HCPCS: 36415; 80053; 85025; 85610; 99283; A9270; 99284